=== PATIENT | male | born 1975 | race Caucasian/White ===

== ENCOUNTER 2018-04-18 19:01 | Emergency (ER) | payer OTHER ==
[2018-04-18] MEDS ORDERED: FLUORESCEIN SODIUM 1 MG STRIP OP ONE ×2 (19:36→20:03)
[2018-04-18] MEDS ORDERED: ERYTHROMYCIN 0.5% 1 GM OPHT.OINT ONE (19:36)
[2018-04-18] MEDS ORDERED: PROPARACAINE 0.5% 15 ML OPHT DROP ONE (19:37)
[2018-04-18] MEDS ORDERED: ERYTHROMYCIN 0.5% 1 GM OPHT.OINT EACHEYE ONE (19:38)
[2018-04-18] MEDS ORDERED: PROPARACAINE 0.5% 15 ML OPHT DROP LEFTEYE ONE (19:39)
[2018-04-18] MEDS ORDERED: TDAP ADULT 0.5 ML INJ (BOOSTRIX) IM ONE (20:00)
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
[2018-04-18 20:34] VITALS: BP 124/82
== END 2018-04-18 20:31 | disposition home or self-care (01) ==
LOC: CED 19:01
PROC: 2W21X4Z Dressing of Face using Bandage (ICD-10-PCS; principal; 2018-04-18)
DX: T20.19XA Burn of first degree of multiple sites of head, face, and neck, initial encounter (principal); T26.42XA Burn of left eye and adnexa, part unspecified, initial encounter; T31.0 Burns involving less than 10% of body surface; Z23 Encounter for immunization; X10.2XXA Contact with fats and cooking oils, initial encounter; Y92.9 Unspecified place or not applicable; Y99.9 Unspecified external cause status; Y93.G3 Activity, cooking and baking
CPT/HCPCS: 90471-ER; 99284-ER